=== PATIENT | female | born 1940 | race Caucasian/White ===

== ENCOUNTER 2020-02-04 19:49 | Emergency (ER) | payer MEDICARE ==
[~2020-02-04] VITALS: Ht 170.2 cm; Wt 77.3 kg
[~2020-02-04 19:49] MED LIST: LEVO88TA28 PO
[2020-02-04] MEDS ORDERED: diphenhydrAMINE 25mg capsule PO ONE (20:00)
--- NOTE | 2020-02-04 21:50 | NUR ---
AGUSTIN SUMNER AT BEDSIDE ASSESSING PATIENT
[2020-02-04] MEDS ORDERED: hydrALAZINE 25 MG tablet PO STA (22:05)
[2020-02-04 23:23] VITALS: BP 155/85
== END 2020-02-04 23:26 | disposition home or self-care (01) ==
LOC: ER 19:50
DX: T78.40XA Allergy, unspecified, initial encounter (principal); I10 Essential (primary) hypertension; E03.9 Hypothyroidism, unspecified; Z88.4 Allergy status to anesthetic agent; Z79.899 Other long term (current) drug therapy; Y92.89 Other specified places as the place of occurrence of the external cause
CPT/HCPCS: 99283; Q0163